=== PATIENT | female | born 1960 | race Hispanic/Latino ===

== ENCOUNTER → 2018-02-05 | Outpatient (CLI) | payer OTHER ==
--- NOTE | 2018-02-07 20:13 | Diagnostic Imaging Report ---
MRI SPINE CERVICAL WO HISTORY: Left face, neck, and arm pain; spondylosis with radiculopathy COMPARISON: None. TECHNIQUE: Sagittal T1, sagittal T2, sagittal inversion recovery, axial T2, axial T2 GRE, and axial T1 weighted MR images of the cervical spine were obtained without intravenous contrast. DISCUSSION: Alignment: Straightening of the cervical lordosis. No scoliosis. Vertebrae: No definite evidence for fractures, infection, or neoplasm. Cervicomedullary junction: No abnormalities. Spinal cord: The right ventral cord is indented by disc at C4-C5. The cord is otherwise normal in signal and morphology from the foramen magnum through T5-T6. Soft tissues: Small perineural cysts are seen bilaterally at C5-C6, on the right at C6-C7, and on the left at T1-T2. There is mild disc degeneration from C4-C5 to C6-C7. C2-C3: Patent canal and foramina. C3-C4: Patent canal and foramina. C4-C5: Mild to moderate canal stenosis due to 5 mm right paracentral disc extrusion (with 3 mm of superior and inferior migration) and ligamentum flavum thickening. No significant foraminal stenosis C5-C6: Mild canal stenosis due to posterior disc osteophyte complex and ligamentum flavum thickening. Mild bilateral foraminal stenoses due to uncovertebral and facet arthrosis. C6-C7: Mild canal stenosis due to posterior disc osteophyte complex and ligamentum flavum thickening. Mild right and mild to moderate left foraminal stenoses due to uncovertebral and facet arthrosis. C7-T1: Patent canal and foramina. IMPRESSION: 1. Mild disc degeneration from C4-C5 to C6-C7. 2. 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 Associated 5 mm right C4-C5 paracentral disc extrusion (with 3 mm superior and inferior migration) indents the right ventral cord. 3. Multilevel bilateral degenerative foraminal stenoses - mild to moderate on the left at C6-C7. Signed by: Dr. Usman Field M.D. on 02/07/2018 8:10 PM
== END ==
LOC: MRI 07:58
PROVIDERS: ATTEND Internal Medicine
DX: M47.22 Other spondylosis with radiculopathy, cervical region (principal)
CPT/HCPCS: 72141